=== PATIENT | female | born 1995 | race Caucasian/White ===

== ENCOUNTER 2025-02-17 08:05 | Emergency (ER) | payer MEDICAID ==
[~2025-02-17] VITALS: Ht 162.6 cm; Wt 109.1 kg
[2025-02-17 08:10] VITALS: BP 149/86; PULSE 81; TEMP 97.9; O2SAT 98
[2025-02-17] MEDS ORDERED: AMOX-117 PO (09:14)
[2025-02-17] MEDS ORDERED: ibuprofen tablet 400 MG TABLET PO ONE (09:15)
[2025-02-17] MEDS ORDERED: acetaminophen 325mg tablet PO ONE (09:15)
[2025-02-17 09:50] VITALS: RESP 16
[2025-02-17] MEDS: ketorolac trometh 15mg/ml vial 15 MG/ML ML IM ONE (09:50)
== END 2025-02-17 09:57 | disposition home or self-care (01) ==
LOC: ER 08:06
DX: K08.89 Other specified disorders of teeth and supporting structures (principal)
CPT/HCPCS: 96372; 99283; J1885